=== PATIENT | female | born 1975 | race Native Hawaiian/Other Pacific Islander ===

== ENCOUNTER 2020-12-10 09:52 | Outpatient (CLI) | payer OTHER ==
--- NOTE | 2020-12-10 14:42 | Mammography Report ---
DIGITAL SCREENING MAMMOGRAM WITH CAD, 12/10/2020 CLINICAL INFORMATION / INDICATION: Routine screening mammography. SCREENING MAMMO Z12.31 TECHNIQUE: Digital bilateral 2D mammography was obtained in the craniocaudal and mediolateral obliqu e projections. This examination was interpreted with the benefit of Computer-Aided Detection analysis . COMPARISON: 03/26/2014 through 09/23/2017. FINDINGS: Breast Density: The breasts are extremely dense, which lowers the sensitivity of mammography. No dominant mass, suspicious calcifications, or architectural distortion in either breast. Right breast scarring is stable. IMPRESSION: No mammographic evidence of malignancy. Follow up recommendation: Routine yearly BI-RADS Category 2: Benign. A "normal" or negative report should not discourage follow up or biopsy of a clinically significant f inding. A written summary of these findings will be mailed to the patient. The patient will be entered into a mammography reporting system which will generate a reminder letter for the patient's next appointmen t at the appropriate interval. The [employer] recommends yearly mammograms starting at age 40 and continuing as l corby as a woman is in good health. Breast MRI is recommended for women with an approximate 20-25% or greater lifetime risk of breast cancer, including women with a strong family history of breast or ova angella cancer or who have been treated for Hodgkin's disease. Signer Name: Bernard Buckley MD Signed: 12/10/2020 2:37 PM Workstation Name: [id number]
== END 2020-12-10 09:53 | disposition home or self-care (01) ==
LOC: SPVWC 09:52
PROVIDERS: ATTEND Family Medicine
DX: Z12.31 Encounter for screening mammogram for malignant neoplasm of breast (principal)
CPT/HCPCS: 77067